=== PATIENT | male | born 1995 | race Caucasian/White ===

== ENCOUNTER 2020-11-26 12:03 | Emergency (ER) | payer BC, SELFPAY ==
[2020-11-26 12:13] VITALS: BP 155/99; PULSE 85; RESP 18; TEMP 36.9; O2SAT 96; BMI 22.5
[2020-11-26 12:19] VITALS: BP 155/99; PULSE 89; RESP 16; O2SAT 99
--- NOTE | 2020-11-26 12:30 | ED_ITS ---
HPI - Back Pain/Injury General: Chief Complaint: Back Pain/Injury Stated Complaint: Lower severe back pain. Time Seen by Provider: 11/26/20 12:21 History of Present Illness: HPI Narrative: Patient has a history of chronic low back pain.'s been a while since he is having problem but today he lifted his dog with his arm outstretched and twisted and felt pain in his back he said is not very bad but would like to have steroid which is helped him in the past. MD elicited complaint: back pain Pertinent past history: prior back pain Onset (ago): hour(s) Timing: constant Severity: mild Quality: aching Location: lumbar spine Radiation: none Exacerbating factors: movement Relieving factors: immobilization Context: while lifting and turning/twisting Associated symptoms: Reports no associated symptoms; Deny abdominal pain, chills, fever(s), nausea or vomiting Review of Systems Const: Denies: fever(s), chills or body aches Eyes: Denies: change in vision or blurry vision ENMT: Denies: throat pain or nasal congestion Card: Denies: chest pain or dyspnea on exertion Resp: Denies: dyspnea, productive cough or non-productive cough GI: Denies: abdominal pain, nausea or vomiting : Denies: difficulty urinating Musc: Reports: back pain; Denies: extremity pain Skin/Breast: Denies: rash Neuro: Denies: headache(s) Psych: Denies: anxiety or depression Hermelindo/Lymph: Denies: easy bruising Physical Exam Const: COMMON NORMALS: no acute distress Back/Pelvis: LUMBAR SPINE/LOWER BACK: Yes paraspinal muscle tenderness Lumbar paraspinal muscle tenderness: right Psych: COMMON NORMALS: mental status grossly normal Course Vital Signs: Vital signs: Vital Signs Temperature 98.4 F 11/26/20 12:13 Pulse Rate 89 11/26/20 12:19 Respiratory Rate 16 11/26/20 12:19 Blood Pressure 155/99 11/26/20 12:19 Pulse Oximetry 99 11/26/20 12:19 Discharge Plan Discharge Patient Disposition: Home Clinical Impression: Strain of lumbar region Qualifiers: Encounter type: initial encounter Qualified Code(s): S39.012A - Strain of muscle, fascia and tendon of lower back, initial encounter Condition: Stable Prescriptions: New prednisone 20 mg tablet 20 mg PO DAILY Qty: 14 RF: 0 Discharge Orders: Discharge ED (Routine); Ordered 11/26/20 Ordered By: Jesus Rhodes Referrals: Fer Benjamin MD [Primary Care Provider] - Discharge Diet: Usual diet Discharge Activity: Increase activity as tolerated Patient Instructions: Low Back Strain (ED) Activity Restrictions/Additional Instructions: Follow-up with medical provider as directed. Take medications as prescribed. Return to the ER or your medical provider if condition worsens. Please read and understand discharge instructions. If any questions ask please. Coding Level of Care Code ED Email Marketing Processor for Estefania Corona
--- NOTE | 2020-11-28 09:12 | DCPLANNER ---
global manager had message to speak with patient about getting established with a primary care physician. Patient stated that he would like to be established with someone in the [place] area. global manager called the [place] clinic, a follow up appointment was scheduled for Sunday, November 29, 2020 at 9:15 with Ginger. global manager called patient and gave patient appointment information.
--- NOTE | 2021-01-05 07:36 | DCPLANNER ---
Patient had a follow up appointment at [facility] - patient did attend appointment.
== END 2020-11-26 15:27 | disposition home or self-care (01) ==
PROVIDERS: Emergency Provider Nurse Practitioner Family; PCP Family Medicine
DX: S39.012A Strain of muscle, fascia and tendon of lower back, initial encounter (principal); X50.0XXA Overexertion from strenuous movement or load, initial encounter
CPT/HCPCS: 99282

== ENCOUNTER → 2021-02-21 07:54 | Outpatient (BNVA) | payer OTHER, SELFPAY | PROVIDERS: PCP Family Medicine; Visit Provider Nurse Practitioner Family | DX: Z20.822 Contact with and (suspected) exposure to COVID-19 (principal); R05 Cough; R50.9 Fever, unspecified; R52 Pain, unspecified | CPT/HCPCS: 87635 ==

== ENCOUNTER 2021-07-11 14:53 | Outpatient (CLI) | payer BC, MEDICAID, SELFPAY ==
--- NOTE | 2021-07-11 15:02 | XR_ITS ---
WS: [id number] XR thoracic spine 3V* [id number] REASON FOR EXAM: M54.9 - Dorsalgia, unspecified FINDINGS: Normal thoracic spine alignment. No significant compression deformity or other focal vertebral body abnormality. Intervertebral disc spaces are well preserved. XR/XR thoracic spine 3V* [id number] IMPRESSION: No significant abnormality.
--- NOTE | 2021-07-11 15:02 | XR_ITS ---
WS: [id number] XR lumbar spine 2-3V* [id number] REASON FOR EXAM: M54.9 - Dorsalgia, unspecified FINDINGS: Mild rotatory scoliosis convex right. No significant lumbar vertebral compression deformity or other focal lesion. Mild narrowing of the L5-S1 disc space. No spondylolysis or spondylolisthesis. XR/XR lumbar spine 2-3V* [id number] IMPRESSION: Mild narrowing of the L5-S1 disc space, otherwise no significant abnormality.
== END 2021-07-11 14:54 | disposition home or self-care (01) ==
LOC: RAD 14:58
PROVIDERS: PCP Family Medicine; Visit Provider Nurse Practitioner Family
DX: M54.9 Dorsalgia, unspecified (principal); G89.29 Other chronic pain
CPT/HCPCS: 72072; 72100

== ENCOUNTER 2021-08-09 06:00 | Outpatient (RCR) | payer BC, MEDICAID, SELFPAY | END 2021-08-30 23:59 | disposition home or self-care (01) | LOC: GPT 06:00 | PROVIDERS: PCP Family Medicine; Referring Provider Nurse Practitioner Family; Visit Provider Nurse Practitioner Family | DX: G89.29 Other chronic pain (principal); M54.9 Dorsalgia, unspecified | CPT/HCPCS: 97110; 97161 ==

== ENCOUNTER → 2023-11-06 10:25 | Outpatient (BNVA) | payer BC, MEDICAID, SELFPAY | PROVIDERS: PCP Nurse Practitioner Family; Visit Provider Anesthesiology Pain Medicine | DX: M41.86 Other forms of scoliosis, lumbar region (principal) | CPT/HCPCS: 72110 ==

== ENCOUNTER 2023-11-10 11:53 | Emergency (ER) | payer BC, MEDICAID, SELFPAY ==
[2023-11-10 12:16] VITALS: BP 142/69; PULSE 99; RESP 16; TEMP 37.2; O2SAT 98
[2023-11-10] MEDS: dexamethasone 10 mg/mL INJ IV (13:31)
[2023-11-10] MEDS: ketorolac 30 mg/mL INJ IVP (13:32)
[2023-11-10] MEDS: orphenadrine 30 mg/mL Inj 2 mL 60 MG IM (13:34)
[2023-11-10 13:36] VITALS: PULSE 91; O2SAT 99
[2023-11-10 13:37] LABS: Basophils % 0.5 %; Eosinophils # 0.3 10^3/uL (0.0-0.8); Eosinophils % 3.3 %; Hematocrit 44.3 % (37-53); Lymphocytes # 2.6 10^3/uL (0.8-4.8); Lymphocytes % 34.2 %; Mean Corpuscular HGB Conc 34.5 g/dL (30-55); Mean Corpuscular Hemoglobin 30.7 pg (27-33); Mean Corpuscular Volume 88.8 fl (82-101); Monocytes # 0.6 10^3/uL (0.2-0.9); Monocytes % 8.3 %; Neutrophils # 4.04 10^3/uL (1.8-7.7); Neutrophils % 53.6 %; Nucleated Red Blood Cells % 0 %; Platelet Count 227 10^3/cmm (157-399); Red Blood Count 4.99 10^6/uL (3.85-5.65); Red Cell Distribution Width 12.3 % (12.1-15.1); White Blood Count 7.55 10^3/uL (3.29-11.43)
--- NOTE | 2023-11-10 13:48 | ED_ITS ---
HPI - Back Pain/Injury 2 General: Chief Complaint: Back Pain/Injury Stated Complaint: lower back pain Time Seen by Provider: 11/10/23 13:00 Source: patient Mode of arrival: ambulatory History of Present Illness: 28-year-old male presents to the emergen cy room with complaints of back pain. No recent trauma. No urinary retention or fecal incontinence. Patient has had quite a bit of back problems in the past he had an MRI about a year ago there is a disc bulge did not seem amenable to surgery so he has been following up with the pain clinic with Dr. Romo of tried various procedural things with no improvement. He took occasional oxycodone took 1 this morning with no improvement. He has pain in his low back in the past he had radiation of the pain down the right leg but none today. No weakness in the feet. MD elicited complaint: back pain Pertinent past history: prior back pain Onset (ago): day(s) Timing: constant Severity: similar to previous episodes Quality: sharp Location: lumbar spine Exacerbating factors: none Relieving factors: none Associated symptoms: Deny abdominal pain, arthralgias, chills, change in bowel habits, difficulty walking, dysuria, fatigue, fecal incontinence, fever(s), hematuria, myalgias, nausea, numbness, syncope, tingling/numbness/burning, urinary frequency, urinary urgency, vomiting or weakness Treatments prior to arrival: prescription analgesics Review of Systems 2 Const: Denies: fever(s), chills or fatigue Card: Denies: syncope Resp: Denies: dyspnea GI: Denies: abdominal pain, nausea, vomiting, fecal incontinence or change in bowel habits : Denies: dysuria, urinary urgency or hematuria Musc: Denies: neck pain or back pain Skin/Breast: Denies: rash Neuro: Denies: difficulty walking PFS ED 2 PFSH: Social History Smoking and tobacco/nicotine status: current every day tobacco/nicotine user cigarettes Packs smoked per day: 25 Alcohol intake: current Alcohol intake frequency: few times a month Physical Exam 2 Const: GENERAL APPEARANCE: cooperative and comfortable O RIENTATION/CONSCIOUSNESS: Yes awake, Yes oriented to person, Yes oriented to place and Yes oriented to time HENMT: COMMON NORMALS: normocephalic, atraumatic and hearing grossly normal bilaterally HEAD & SCALP: normocephalic and atraumatic Resp: COMMON NORMALS: normal respiratory effort, No retractions, No use of accessory muscles and clear to auscultation bilaterally AUSCULTATION: clear to auscultation bilaterally Cardio: COMMON NORMALS: regular rate, regular rhythm and No murmurs present (Cardio) RATE: regular rate RHYTHM: regular rhythm GI: COMMON NORMALS: Soft to palpation and No hepatosplenomegaly present A USCULTATION: Yes normoactive bowel sounds PALPATION: Yes Soft to palpation, No Tenderness to palpation present (GI), No Guarding due to palpation present (GI) and Yes No hepatosplenomegaly present : COMMON NORMALS: Yes no CVA tenderness BLADDER/KIDNEY EXAM: Yes no CVA tenderness Back/Pelvis: COMMON NORMALS: no CVA tenderness Extremity: COMMON NORMALS: normal to inspection, capillary refill normal, no clubbing, cyanosis or edema, no calf tenderness and no pedal edema Neuro: SENSORIUM/ORIENTATION: Yes oriented to person, Yes oriented to place and Yes oriented to time OTHER: Deep tendon reflexes +1/4 patellar tendon. Dorsal and plantar flex strength 5 of 5 sensation lower extremity normal Skin: COMMON NORMALS: no rashes or lesions noted GENERAL SKIN EXAM: no rashes or lesions noted Course 2 Vital Signs: Vital signs: Vital Signs Temperature 98.9 F 11/10/23 12:16 Pulse Rate 91 11/10/23 13:36 Respiratory Rate 16 11/10/23 12:16 Blood Pressure 142/69 11/10/23 12:16 Pulse Oximetry 99 11/10/23 13:36 Oxygen Delivery Me thod Room Air 11/10/23 13:36 MDM - Back Pain/Injury Medical Decision Making Patient has worsening of his chronic back pain that seems more musculoskeletal in nature at this time he does not have any radicular-like symptoms today no red flag symptoms. Will discharge patient home on steroid taper muscle relaxer and anti-inflammatories. Follow-up with the pain clinic as soon as able. Differential Diagnosis Likely strain of lumbar region Medical Records I reviewed the patient's medical records. Labs 11/10/23 13:25 11/10/23 13:25 Laboratory Results WBC 7.55 10^3/uL (3.29-11.43) 11/10/23 13:25 RBC 4.99 10^6/uL (3.85-5.65) 11/10/23 13:25 Hgb 15.30 g/dL (11.27-16.99) 11/10/23 13:25 Hct 44.3 % (37-53) 11/10/23 13:25 MCV 88.8 fl (82-101) 11/10/23 13:25 MCH 30.7 pg (27-33) 11/10/23 13:25 MCHC 34.5 g/dL (30-55) 11/10/23 13:25 RDW 12.3 % (12.1-15.1) 11/10/23 13:25 Plt Count 227 10^3/cmm (157-399) 11/10/23 13:25 MPV 10.0 fL (7.4-10.4) 11/10/23 13:25 Neut % (Auto) 53.6 % 11/10/23 13:25 Lymph % (Auto) 34.2 % 11/10/23 13:25 Ralls % (Auto) 8.3 % 11/10/23 13:25 Eos % (Auto) 3.3 % 11/10/23 13:25 Baso % (Auto) 0.5 % 11/10/23 13:25 Neut # (Auto) 4.04 10^3/uL (1.8-7.7) 11/10/23 13:25 Lymph # (Auto) 2.6 10^3/uL (0.8-4.8) 11/10/23 13:25 Ralls # (Auto) 0.6 10^3/uL (0.2-0.9) 11/10/23 13:25 Eos # (Auto) 0.3 10^3/uL (0.0-0.8) 11/10/23 13:25 Baso # (Auto) 0.0 10^3/uL (0.0-0.1) 11/10/23 13:25 Nucleated RBC % (auto) 0 % 11/10/23 13:25 Nucleated RBCs # 0.0 /100WBC 11/10/23 13:25 Sodium 141 mmol/L (136-145) 11/10/23 13:25 Potassium 4.2 mmol/L (3.5-5.1) 11/10/23 13:25 Chloride 104 mmol/L (98-107) 11/10/23 13:25 Carbon Dioxide 26 mmol/L (22-29) 11/10/23 13:25 Anion Gap 15.2 (5-19) 11/10/23 13:25 BUN 19 mg/dL (6-20) 11/10/23 13:25 Creatinine 0.7 mg/dL (0.7-1.2) 11/10/23 13:25 GFR Calculation 132.4 mL/min (90-130) H 11/10/23 13:25 Glucose 99 mg/dL (65-115) 11/10/23 13:25 Calculated Osmolality 294 mOsm/kg (285-295) 11/10/23 13:25 Calcium 9.1 mg/dL (8.5-10.5) 11/10/23 13:25 Total Bilirubin 0.5 mg/dL (0.15-1.2) 11/10/23 13:25 AST 18 U/L (0-40) 11/10/23 13:25 ALT 37 U/L (0-41) 11/10/23 13:25 Alkaline Phosphatase 76 U/L (40-130) 11/10/23 13:25 Total Protein 7.3 g/dL (6.6-8.7) 11/10/23 13:25 Albumin 4.4 g/dL (3.5-5.2) 11/10/23 13:25 Globulin 2.9 g/dL (1.3-4.6) 11/10/23 13:25 No radiology studies performed this visit Discharge Plan Discharge Patient Disposition: Home Clinical Impression: Lumbar back pain Condition: Stable Prescriptions: New tizanidine 4 mg tablet 4 mg PO Q6H PRN (Reason: muscle spasticity) Qty: 20 0RF Rx Instructions: do not exceed 3 doses per 24 hrs prednisone 20 mg tablet 20 mg PO TID Qty: 15 0RF Rx Instructions: 1 p.o. 3 times daily x3 days, 1 p.o. twice daily x2 days, 1 p.o. daily x2 days diclofenac sodium 75 mg tablet,delayed release (DR/EC) 75 mg PO Q12H PRN (Reason: pain) Qty: 20 0RF No Action meloxicam 15 mg tablet See Rx Instructions .ROUTE .COMPLEX Qty: 90 1RF Dose Instruction: TAKE ONE TABLET BY MOUTH ONCE DAILY Rx Instructions: TAKE ONE TABLET BY MOUTH ONCE DAILY fluconazole 200 mg tablet 200 mg PO .weekly Qty: 4 0RF ketoconazole 2 % shampoo 1 applic topical DAILY 30 Days Qty: 120 2RF Rx Instructions: leave on for 5 minutes then rinse. ketoconazole 2 % cream 1 applic topical DAILY 30 Days Qty: 60 2RF orphenadrine citrate 30 mg/mL solution 60 mg IM ONCE Qty: 2 0RF methylprednisolone sodium succ 125 mg recon soln 125 mg IM ONCE Qty: 1 0RF prednisone 20 mg tablet 20 mg PO DAILY 10 Days Qty: 15 0RF Rx Instructions: take 2 tabs daily x5 days, then 1 tab daily x 5 days. cyclobenzaprine 10 mg tablet See Rx Instructions .ROUTE .COMPLEX Qty: 30 1RF Dose Instruction: TAKE ONE TABLET BY MOUTH THREE TIMES DAILY NEEDED FOR MUSCLE SPASMS Rx Instructions: TAKE ONE TABLET BY MOUTH THREE TIMES DAILY NEEDED FOR MUSCLE SPASMS Discharge Orders: Discharge ED (Routine); Ordered 11/10/23 Ordered By: Luis Carlos Perez Referrals: Ginger Lawton, [facility] [Primary Care Provider] - Discharge Diet: Usual diet Discharge Activity: Increase activity as tolerated Patient Instructions: Opioid Safety, Pain Management Activity Restrictions/Additional Instructions: Thank you for choosing [facility] for your healthcare needs today. It is very important that you follow up as instructed or that you return to the Emergency Department should you have concerns or if your condition changes or worsens in any way. You were seen today for back pain. You are given steroids muscle relaxers and anti-inflammatories in the emergency room. Recommend to start oral steroid taper tomorrow use of diclofenac and tizanidine as needed. Also recommend you follow-up with your pain clinic physician as soon as you are able to consider reimaging if felt appropriate Coding Level of Care Code ED Physician General Internal Medicine for Estefania Corona
[2023-11-10 13:54] LABS: Alanine Aminotransferase 37 U/L (0-41); Albumin Level 4.4 g/dL (3.5-5.2); Alkaline Phosphatase 76 U/L (40-130); Anion Gap 15.2 (5-19); Aspartate Amino Transferase 18 U/L (0-40); Blood Urea Nitrogen 19 mg/dL (6-20); Calcium 9.1 mg/dL (8.5-10.5); Carbon Dioxide 26 mmol/L (22-29); Chloride 104 mmol/L (98-107); Creatinine Clr Calc Pharmacy 173.9301; Globulin 2.9 g/dL (1.3-4.6); Glomerular Filtration Rate 132.4 mL/min (90-130); Glucose 99 mg/dL (65-115); Osmolality Calculated 294 mOsm/kg (285-295); Potassium 4.2 mmol/L (3.5-5.1); Sodium 141 mmol/L (136-145); Total Bilirubin 0.5 mg/dL (0.15-1.2); Total Protein 7.3 g/dL (6.6-8.7)
[2023-11-10 14:52] VITALS: BP 142/69; PULSE 91; RESP 16; TEMP 37.2; O2SAT 99
== END 2023-11-10 14:55 | disposition home or self-care (01) ==
PROVIDERS: Emergency Provider Family Medicine; PCP Nurse Practitioner Family
DX: M54.50 Low back pain, unspecified (principal); F17.210 Nicotine dependence, cigarettes, uncomplicated
CPT/HCPCS: 80053; 85025; 96374; 96375; 99284; J1100; J1885; J2360

== ENCOUNTER → 2024-03-26 15:48 | Outpatient (BNVA) | payer BC, MEDICAID, SELFPAY | PROVIDERS: PCP Nurse Practitioner Family; Visit Provider Orthopaedic Surgery | DX: M51.16 Intervertebral disc disorders with radiculopathy, lumbar region (principal) | CPT/HCPCS: 72110 ==

== ENCOUNTER 2024-05-20 12:40 | Outpatient (CLI) | payer BC, MEDICAID, SELFPAY ==
--- NOTE | 2024-05-20 13:43 | MR_ITS ---
WS: [id number] MRI LUMBAR SPINE NONCONTRAST TECHNIQUE: Sagittal T1, T2 and STIR imaging. Axial T1 and T2 imaging. CLINICAL INFORMATION: chronic lumbar pain COMPARISON: Outside MRI dated 11/27/2022 images only FINDINGS: Mild lumbar curve. No acute compression. No high-grade central canal stenosis. Shallow central protru maria de jesus L5-S1 with a small annular fissure. L1-L2: Normal. L2-L3: Mild facet arthropathy. Spinal canal and foramen are patent. L3-L4: Mild annular bulging. Slight narrowing of the RIGHT subarticular recess. Mild facet arthropath y. Spinal canal and foramen are patent. L4-L5: Mild annular bulging. Mild facet arthropathy. Spinal canal and foramen are patent. L5-S1: Shallow central protrusion with slight contact of the traversing LEFT greater than RIGHT S1 ne rve roots. Small annular fissure. Foramen are patent. Mild facet arthropathy. Visualized pelvic bony structures: Normal. Paravertebral soft tissues: Normal. MR/MR lumbar spine wo con* [id number] IMPRESSION: 1. Mild lumbar curve. No acute compression. Disc bulging worse at L5-S1. 2. Shallow central protrusion L5-S1 with a small annular fissure. Slight conta ct of the traversing LEFT greater than RIGHT S1 nerve roots. This has involuted slightly since the outside imaging but otherwise no significant change. 3. Slight annular bulge L3-4 with minimal narrowing of the RIGHT subarticular recess. 4. Mild facet arthropathy L3-L5.
== END 2024-05-20 12:41 | disposition home or self-care (01) ==
PROVIDERS: PCP Nurse Practitioner Family; Visit Provider Orthopaedic Surgery
DX: M51.16 Intervertebral disc disorders with radiculopathy, lumbar region (principal); M51.26 Other intervertebral disc displacement, lumbar region
CPT/HCPCS: 72148